=== PATIENT | female | born 1960 | race Caucasian/White ===

== ENCOUNTER 2022-10-11 16:22 | Emergency (ER) | payer BC, OTHER, SELFPAY ==
--- NOTE | ~2022-10-11 | CT_ITS ---
EXAMINATION: CT abdomen pelvis w con DATE: 10/11/2022 17:41 INDICATION: 5 weeks of left lower quadrant pain. TECHNIQUE: Computed tomography (CT) of the abdomen and pelvis was performed with 100 mL Omnipaque-350 intravenous contrast. Automated exposure control and iterative reconstruction technique were employe d. The dose-length product was 1612.29 mGy-cm. COMPARISON: None FINDINGS: Mild bibasilar atelectasis. Heart size is normal. No pericardial or pleural effusion. Cholecystectomy clips at the gallbladder fossa. Liver, spleen, pancreas, bilateral adrenal glands and right kidney a re normal. 8 mm low-attenuation cyst at the lower pole of the left kidney. There are a few scattered colonic diverticula without adjacent from trace stranding to suggest diverticulitis. There is fluid t hroughout the proximal to mid colon consistent with diarrhea. Small bowel and appendix are normal. Th e bladder is nonvisualized, likely decompressed and obscured by dense metallic streak artifact from b ilateral total hip arthroplasties. The uterus is not identified and has likely been surgically resect ed. 1.5 cm left adnexal cyst. More distally there is likely tubal ligation clip in the anterior left pelvis. Small intra-abdominal postoperative scars near the umbilicus at the site of a prior reservoir for a since removed laparoscopic band. No free intraperitoneal gas or fluid. No pathologically enlar ged abdominal or pelvic lymphadenopathy. 10 mm anterolisthesis L5 on S1 with L4-S1 anterior spinal fu hai with bilateral vertical rigo fixation with pedicle screws bilaterally at both L4 and S1. IMPRESSION: 1. Colonic fluid consistent with nonspecific diarrhea. No other acute intra-abdominal/pelvic process. Reviewed, dictated and finalized at location A. IMPRESSION: 1. Colonic fluid consistent with nonspecific diarrhea. No other acute intra-abd ominal/pelvic process.
[2022-10-11 16:25] VITALS: BP 142/68; PULSE 82; RESP 18; TEMP 36.7; O2SAT 96
[2022-10-11 17:21] LABS: Basophils Absolute Auto 0.1 K/mm3 (0.0-0.1); Basophils Percent Auto 1.1 % (0.2-1.2); Eosinophils Absolute Auto 0.2 K/mm3 (0-0.3); Eosinophils Percent Auto 1.8 % (0-4.4); Hematocrit 39.6 % (37.0-47.0); Hemoglobin 13.5 g/dL (12.0-15.0); Immature Granulocyte Absolute 0.02 K/mm3 (0.00-0.031); Immature Granulocyte Percent A 0.2 % (0-0.5); Lymphocytes Absolute Auto 1.94 K/mm3 (0.9-3.2); Lymphocytes Percent Auto 23.5 % (18.3-44.2); Mean Corpuscular HGB Conc 34.1 g/dl (32-36); Mean Corpuscular Hemoglobin 28.7 pg (26-34); Mean Corpuscular Volume 84.3 fl (80-100); Mean Platelet Volume 9.6 fl (7.4-10.4); Monocytes Absolute Auto 0.6 K/mm3 (0.1-0.6); Monocytes Percent Auto 7.3 % (2.6-8.5); Neutrophils Absolute Auto 5.5 K/mm3 (1.3-6.7); Neutrophils Percent Auto 66.1 % (45.5-73.1); Platelet Count Result 250 k/mm3 (150-375); Red Cell Distribution Width 13.3 % (11.5-14.5); White Blood Count 8.3 K/mm3 (4.5-10.0)
[2022-10-11 17:23] LABS: Appearance Urine Clear (Clear); Bilirubin Urine Negative (Negative); Blood Urine Negative (Negative); Color Urine Yellow (Yellow); Glucose Urine UA Negative (Negative); Ketones Urine Negative (Negative); Leukocyte Esterase Ur Negative LEU/UL (Negative); Nitrate Urine Negative (Negative); Protein Urine Negative (Negative); Specific Grav Ur 1.014 (1.001-1.035); Urobilinogen Urine 0.2 mg/dL (<2.0)
[2022-10-11 17:29] LABS: Add Urine Microscopic? NO
[2022-10-11 17:30] LABS: Alanine Aminotransferase 39 U/L (6-35); Albumin Level 4.2 g/dL (3.5-5.1); Alkaline Phosphatase 95 U/L (38-126); Anion Gap 8 mmol/L (8-16); Aspartate Amino Transferase 37 U/L (14-36); Bilirubin,Total 0.5 mg/dL (0.2-1.3); Blood Urea Nitrogen 13 mg/dL (7-17); Calcium 9.1 mg/dL (8.4-10.2); Carbon Dioxide 25 mmol/L (22-30); Chloride 106 mmol/L (98-107); Estimated CRCL calculation 80 ml/min; Estimated Glomerular Filt Rate > 60; Glucose 116 mg/dL (65-110); Lipase 196 U/L (23-300); Potassium 3.8 mmol/L (3.4-5.0); Sodium 139 mmol/L (137-145)
--- NOTE | 2022-10-11 18:17 | ED.ABDPAIN ---
HPI - Abdominal Pain General Chief Complaint: Abdominal Pain Stated Complaint: left side pain, left head pain Time Seen by Provider: 10/11/22 16:36 Source: patient and family Mode of arrival: ambulatory Limitations: no limitations History of Present Illness HPI narrative: 62-year-old with a history of hypertension, lumbar fusion 2011, herpes zoster here with complaints of 5-1/2-week duration of left lower abdominal pain. Patient states that she has been traveling from [place] [facility] [place] just got back from [place] started having severe pain in the left lower abdomen. Patient states that she was seen in the ER in [place] few days ago for the same pain had lab work and CT scan done at that time which was unremarkable. Patient patient also states that she has history of shingles she called her primary doctor who prescribed her valacyclovir. She is on day 4 of treatment she presently has no rash. Patient also states that she has burning pain on her right knee and on the scalp. Related Data Home Medications Medication Instructions Recorded Confirmed Adults Multivitamin 1 tablet PO DAILY 05/06/19 05/06/19 Vitamin D3 1 tablet PO DAILY 05/06/19 05/06/19 loratadine 10 mg tablet (Claritin) 10 mg PO DAILY 05/06/19 05/06/19 vitamin E 1 tablet PO Q3-4D 05/06/19 05/06/19 estradiol 0.01% (0.1 mg/gram) 1 gm vaginal WEEKLY 05/11/19 vaginal cream estradiol 10 mcg vaginal tablet 10 mcg vaginal 2XW 05/11/19 Allergies Allergy/AdvReac Type Severity Reaction Status Date / Time bacitracin Allergy Unknown Rash Verified 05/11/19 15:48 neomycin Allergy Unknown Rash Verified 05/11/19 15:48 Review of Systems Constitutional: Constitutional: Reports no additional constitutional complaints Eyes: Eyes: Reports no additional eye complaints ENT: Reports system reviewed and no additional complaints, except as documented Cardiovascular: Cardiovascular: Reports no additional cardiovascular complaints Respiratory: Respiratory: Reports no additional respiratory complaints Gastrointestinal: Gastrointestinal: Reports as per HPI Musculoskeletal: Musculoskeletal: Reports no additional musculoskeletal complaints Integumentary/Breasts: Skin/Breast: Reports system reviewed and no additional complaints, except as docu Neurologic: Reports as per HPI [facility] Past Medical History Medical History Encounter for general adult medical examination with abnormal findings Hypertension Morbid obesity ROSAMARIA (obstructive sleep apnea) Family History Family History Mother Diabetes mellitus Hypertension Asthma Cerebrovascular accident Family history of arthritis Father Family history of cardiovascular disease Acute myocardial infarction Carcinoma of colon Family history of coronary artery disease Social History Social History Smoking status: Never smoker Alcohol intake: never Exam Narrative: GENERAL: Well-appearing, well-nourished, and in no acute distress. HEAD: Normocephalic, atraumatic. EYES: PERRLA and EOMI.. NECK: Supple. CHEST: Clear to auscultation. No respiratory distress. HEART: Regular rate and rhythm. No murmur heard. Normal peripheral pulses. ABDOMEN: Soft, nontender, nondistended, normal active bowel sounds. EXTREMITIES: Normal range of motion. No edema. SKIN: Warm, dry, . No rash noted anywhere on the body NEURO: No focal deficits. Alert and oriented x3. PSYCH: Normal mood and affect. Course Course Emergency Course: Discussed lab and CT findings with the patient and the family because of her pain is unknown to my knowledge the way she present burning pain most likely is neuropathic pain could be from her lower back however she still has pain on the scalp and on the right knee which are totally unrelated I recommended her to take pain medication an
[2022-10-11 18:20] VITALS: BP 146/81; PULSE 69; RESP 18; O2SAT 99
== END 2022-10-11 18:50 | disposition home or self-care (01) ==
PROVIDERS: Emergency Provider Family Medicine
DX: R10.32 Left lower quadrant pain (principal); M79.2 Neuralgia and neuritis, unspecified; I10 Essential (primary) hypertension; G47.33 Obstructive sleep apnea (adult) (pediatric); E66.01 Morbid (severe) obesity due to excess calories; Z68.41 Body mass index [BMI] 40.0-44.9, adult; Z98.1 Arthrodesis status
CPT/HCPCS: 36415; 74177; 80053; 81003; 83690; 85025; 99284; Q9967

== ENCOUNTER 2022-11-04 12:03 | Outpatient (CLI) | payer BC, OTHER, SELFPAY ==
--- NOTE | ~2022-11-04 | US_ITS ---
EXAMINATION: US transvaginal DATE: 11/04/2022 12:42 INDICATION: Left adnexal cyst seen on prior CT. Comparison:CT dated 10/11/2022 TECHNIQUE: Multiple endovaginal sonographic images of the pelvis performed. FINDINGS: The uterus and ovaries are surgically absent. No adnexal mass is seen. There is no free flu id in the pelvis. There are no abnormal masses seen on either side. IMPRESSION: 1. Unremarkable pelvic ultrasound status post total hysterectomy. Reviewed, dictated and finalized at location []
== END 2022-11-04 12:04 | disposition home or self-care (01) ==
PROVIDERS: PCP Family Medicine; Visit Provider Physician Assistant Medical
DX: N94.9 Unspecified condition associated with female genital organs and menstrual cycle (principal); R10.2 Pelvic and perineal pain
CPT/HCPCS: 76830